=== PATIENT | male | born 1995 | race Two or more races ===

== ENCOUNTER 2016-12-05 17:10 | Emergency (ER) | payer BC ==
[2016-12-05 17:20] VITALS: BP 138/78
--- NOTE | 2016-12-05 18:38 | RAD ---
HISTORY: Headache, subacute trauma COMPARISONS: None TECHNIQUE: Multiple contiguous axial CT scans were obtained of the head without intravenous contrast. FINDINGS: HEMORRHAGE/INFARCT: There is no hemorrhage or acute infarct. MASSES/SHIFT: There is no mass or shift. EXTRA-AXIAL SPACES: There are no extra-axial fluid collections. SULCI AND VENTRICLES: The sulci and ventricles are normal in size and position for the patient's stated age. CEREBRUM: There are no focal parenchymal abnormalities. BRAINSTEM: There are no focal parenchymal abnormalities. CEREBELLUM: There are no focal parenchymal abnormalities. VESSELS: The vessels are grossly normal. PARANASAL SINUSES: The paranasal sinuses are clear. ORBITS: The orbits are unremarkable. BONES AND SOFT TISSUE: No bone or soft tissue abnormalities are noted. OTHER: None IMPRESSION: NO ACUTE INTRACRANIAL PATHOLOGY.
--- NOTE | 2016-12-05 18:42 | RAD ---
HISTORY: Headache, pain status post subacute trauma COMPARISONS: None TECHNIQUE: Multiple contiguous axial CT scans were obtained of the cervical spine without intravenous contrast, with coronal and sagittal multiplanar reformations. FINDINGS: BRAIN: The visualized brain is unremarkable CENTRAL CANAL: Evaluation of the central canal is limited on CT technique, however there is no obvious canalicular mass or epidural hemorrhage. ALIGNMENT: There is straightening of the normal cervical lordosis. VERTEBRAL BODIES: The odontoid process is intact. The atlantoaxial intervals are symmetric. The vertebral bodies are normal in attenuation, without fracture. JOINTS: There is no subluxation or dislocation MUSCULATURE: Unremarkable INTERVERTEBRAL DISCS: The intervertebral disc spaces are relatively preserved in height. AXIAL IMAGES: On axial images, there is no osseous neural foraminal narrowing or central canal stenosis. SOFT TISSUES: There is prominence of the palatine tonsils.. The prevertebral fat stripe is preserved. OTHER: None. IMPRESSION: 1. NO ACUTE OSSEOUS INJURY TO THE CERVICAL SPINE. 2. STRAIGHTENING OF THE CERVICAL LORDOSIS. 3. INCIDENTALLY NOTED IS PROMINENCE OF THE PALATINE TONSILS BILATERALLY.
[2016-12-05] MEDS ORDERED: HYDROcodone/ACETAMIN 5-325 MG* 1 TAB PO ONE (19:12)
--- NOTE | 2016-12-05 19:13 | ED ---
Thaddeus Diaz Aidan, scribed for Felipe Trammell MD on 12/05/16 at 1842 . Neurological HPI - HPI Summary HPI Summary: 21 y/o male presents to the ED via transfer from [facility] with a complaint of an acute, constant, moderate concussion that occurred 2 days ago after falling and landing on his head while snowboarding. According to the patient, he did not lose consciousness; however, just after the fall, he was unable to stand up for several minutes and [place]. Associated symptoms include an acute, constant, moderate (3/10 this morning; reached 6/10 today) LESLIE that was not alleviated by naproxen or acetaminophen, neck stiffness, mild photophobia, sound sensitivity, difficulty concentrating, and hand tremors today. Additionally, he had ringing in his ears all day yesterday. - History of Current Complaint Chief Complaint: EDHeadInjury Stated Complaint: SENT FROM [facility]-HEAD INJURY Time Seen by Provider: 12/05/16 17:56 Last Known Well Date: 12/03/2016 before the fall Hx Obtained From: Patient Onset/Duration: Sudden Onset, Started days ago - 2 days ago, Still Present Timing: Constant - constant concussion symptoms including a LESLIE that waxes and wanes in severity, constant mild photophobia, constant sensitivity to loud noises, difficulty concentrating, constant neck stiffness, and intermittent episodes of hand tremors Onset Severity: Moderate Current Severity: Mild - constant concussion symptoms including a LESLIE that waxes and wanes in severity, constant mild photophobia, constant sensitivity to loud noises, difficulty concentrating, and constant neck stiffness Number of Seizures: 0 Neurological Deficit Location: Generalized Headache Location: Diffuse (Right), Diffuse (Left) Pain Intensity: 7 - Pt currently experiences a pain level of 3/10 associated with his LESLIE Pain Scale Used: 0-10 Numeric Character: Other: - acute, constant, moderate (3/10 this morning; reached 6/10 today) LESLIE that was not alleviated by naproxen or acetaminophen, neck stiffness, mild photophobia, sound sensitivity, difficulty concentrating, and hand tremors today. Additionally, he had ringing in his ears all day yesterday. Number of Episodes: 1 - Concussion Syncope Context: Witnessed, Loss of Consciousness: No - however, Pt had no [place] and was unable to stand for several minutes just after Frequency: Episodes x___ - 1 Aggravating: Unknown Alleviating: Unknown Associated Signs and Symptoms: Negative: Nothing - acute, constant, moderate (3/ 10 this morning; reached 6/10 today) LESLIE that was not alleviated by naproxen or acetaminophen, neck stiffness, mild photophobia, sound sensitivity, difficulty concentrating, and hand tremors today. Additionally, he had ringing in his ears all day yesterday. Just after the fall, Pt was unable to stand up for several minutes - Additional Pertinent History Primary Care Physician: [id number] - Allergy/Home Medications Allergies/Adverse Reactions: Allergies Allergy/AdvReac Type Severity Reaction Status Date / Time No Known Allergies Allergy Verified 08/06/15 13:57 PMH/Surg Hx/FS Hx/Imm Hx Endocrine/Hematology History: Denies: Hx Diabetes Cardiovascular History: Denies: Hx Hypertension, Hx Pacemaker/ICD Respiratory History: Denies: Hx Asthma Musculoskeletal History: Reports: Hx Tendonitis - RIGHT WRIST, Other Musculoskeletal History - Carbital tunnel syndrome Sensory History: Denies: Hx Contacts or Glasses, Hx Hearing Aid Opthamlomology History: Denies: Hx Contacts or Glasses Psychiatric History: Denies: Hx Eating Disorder, Hx Panic Disorder, Hx of Violent Episodes Against Others - Surgical History Surgery Procedure, Year, and Place: WISDOM TEETH EXTRACTED (2012). Carbitle Tunnel Syndrome Surgery (07/2015) Hx Anesthesia Reactions: No Infectious Disease History: No Infectious Disease History: Denies: Traveled Outside the [place] in Last 30 Days - Family History Known Family History: Positive: Hypertension - Social History Occupation: Student Lives: Alone Alcohol Use: None Alcohol Amount: Sober since 05/12 Substance Use Type: Reports: None Substance Use Comment - Amount & Last Used: Sober since 05/12, polysubstance use prior Smoking Status (MU): Never Smoked Tobacco Review of Systems Constitutional: Negative Positive: Photophobia. Negative: Blurred Vision, Diplopia, Drainage, Erythema ENT: Other - sensitivity to noise Negative: Epistaxis, Dental Pain, Sore Throat, Ear Ache, Nasal Discharge Cardiovascular: Negative Respiratory: Negative Gastrointestinal: Negative Genitourinary: Negative Musculoskeletal: Negative Skin: Negative Neurological: Other - difficulty concentrating, and hand tremors, ringing in ears yesterday Positive: Headache Psychological: Normal All Other Systems Reviewed And Are Negative: Yes Physical Exam Triage Information Reviewed: Yes Vital Signs On Initial Exam: Initial Vitals Temp Pulse Resp BP Pulse Ox 97.4 F 88 18 138/78 98 12/05/16 17:17 12/05/16 17:17 12/05/16 17:17 12/05/16 17:17 12/05/16 17:17 Vital Signs Reviewed: Yes Appearance: Positive: Well-Appearing, No Pain Distress Skin: Positive: Warm, Skin Color Reflects Adequate Perfusion, Dry Head/Face: Positive: Normal Head/Face Inspection Eyes: Positive: EOMI, JUAN CARLOS ENT: Positive: Normal ENT inspection Neck: Positive: Supple, Nontender Respiratory/Lung Sounds: Positive: Clear to Auscultation, Breath Sounds Present Cardiovascular: Positive: RRR Abdomen Description: Positive: Nontender, Soft Bowel Sounds: Positive: Present Musculoskeletal: Positive: Normal, Strength/ROM Intact Neurological: Positive: Normal, Sensory/Motor Intact, Alert, Oriented to Person Place, Time, Other - tender in occiput and upper-mid C1 area of the neck, no neurologic deficit Psychiatric: Positive: Normal, Affect/Mood Appropriate Diagnostics - Vital Signs Vital Signs Temp Pulse Resp BP Pulse Ox 12/05/16 17:17 97.4 F 88 18 138/78 98 - Laboratory Lab Statement: Any lab studies that have been ordered have been reviewed, and results considered in the medical decision making process. - CT BRAIN CT CT Interpretation: No Acute Changes - IMPRESSION: NO ACUTE INTRACRANIAL PATHOLOGY CT Interpretation Completed By: Radiologist CERVICAL SPINE CT CT Interpretation: Positive (See Comments) - IMPRESSION: 1. NO ACUTE OSSEOUS INJURY TO THE CERVICAL SPINE. 2. STRAIGHTENING OF THE CERVICAL LORDOSIS. 3. INCIDENTALLY NOTED IS PROMINENCE OF THE PALATINE TONSILS BILATERALLY. CT Interpretation Completed By: Radiologist Course/Dx - Course Assessment/Plan: WELL IN ED. DISCUSSED RESULTS WITH PATIENT. DISCHARGE HOME STABLE. F/U WITH JOSE. - Diagnoses Provider Diagnoses: Concussion, Cervical strain Discharge - Discharge Plan Condition: Stable Disposition: HOME Patient Education Materials: Concussion (ED), Cervical Strain (ED) Referrals: [facility] JOSE Hooker [Primary Care Provider] - Additional Instructions: FOLLOW UP WITH JOSE. RETURN TO THE EMERGENCY DEPARTMENT FOR ANY WORSENING OF YOUR CONDITION OR QUESTIONS OR CONCERNS. The documentation as recorded by the Thaddeus juan Aidan accurately reflects the service I personally performed and the decisions made by me, Felipe Trammell MD.
== END 2016-12-05 19:32 | disposition home or self-care (01) ==
LOC: ED 17:10
DX: S06.0X9A Concussion with loss of consciousness of unspecified duration, initial encounter (principal); S16.1XXA Strain of muscle, fascia and tendon at neck level, initial encounter; R51 Headache; H53.149 Visual discomfort, unspecified; W19.XXXA Unspecified fall, initial encounter; Y93.9 Activity, unspecified
CPT/HCPCS: 70450; 72125; 99283